=== PATIENT | female | born 1985 ===

== ENCOUNTER 2025-06-20 14:51 | Emergency (ER) | payer OTHER, SELFPAY ==
[2025-06-20 15:09] VITALS: BP 131/80
[2025-06-20 15:28] LABS: Hematocrit 38.0 % (37.0-47.0); Hemoglobin 12.7 g/dL (12.0-16.0); Mean Corp Hgb Conc. 33.4 g/dL (33.0-37.0); Mean Corpuscular Volume 86.4 fL (81.0-99.0); Nucleated Red Blood Cells % 0 %; Platelet Count 212 10^3/uL (130-400); Red Cell Dist. Width 13.4 % (11.5-14.5)
[2025-06-20 15:41] LABS: HCG, Serum Qualitative Screen Negative
[2025-06-20 15:48] LABS: ALT (SGPT) 25 U/L (0-35); AST (SGOT) 22 U/L (14-36); Albumin 4.2 g/dl (3.5-5.0); Alkaline Phosphatase 43 U/L (38-126); Blood Urea Nitrogen 19 mg/dl (7-17); Calcium 8.4 mg/dl (8.4-10.2); Carbon Dioxide 26 mmol/L (22-30); Chloride 108 mmol/L (98-107); Glucose 114 mg/dl (70-99); Potassium 4.5 mmol/L (3.5-5.1); Sodium 138 mmol/L (135-145); Total Protein 7.1 g/dl (6.3-8.2); eGFR > 60.00
[2025-06-20] MEDS: FAMVIR 500 MG PO (19:03)
--- NOTE | 2025-06-20 23:23 | ED.GENMED ---
History of Present Illness
General
Chief Complaint: Skin Problem
Source: patient
Exam Limitations: none
Time Seen by Provider: 06/20/25 18:10
Nursing documentation reviewed up to this point in time: agreed with
History of Present Illness
History of Present Illness:
Patient to ED wtih complaint of rash to left shoulder and ear. Currently taking antibiotcs for skin infection. She reports not improvement. Rash hurts and itches. No fever/chills. No other symptoms. Brought self to ED for eval.
Past History
Past History
ED Past Medical History: None
Review of Systems
Review of Systems
Allergies reviewed?: Yes
All Other Systems: ROS reviewed and negative except as documented in HPI and ROS
Constitutional: Reports no symptoms
EENT: Reports no symptoms
Respiratory: Reports no symptoms
Cardiac: Reports no symptoms
Musculoskeletal: Reports no symptoms
Skin: Reports other (vesicular rash to left outer ear, left shoulder)
Neurological: Reports no symptoms
Psychiatric: Reports no symptoms
Phy Exam
General Physical Exam
General Presentation: well appearing and no apparent distress
General age: appears stated age
General Skin: warm and dry
General Habitus: normal
General Mental: alert
ENT Exam
ENT Exam: EOMI, TM's normal, pharynx normal, neck supple and normocephalic
Skin Exam
Skin Exam: normal color, warm/dry and other (Grouped vesicular rash to left shoulder, left outer ear consistent with herpes zoster.)
Psychiatric Exam
Psychiatric Exam: normal mood/affect
Course
Orders/Labs/Results
Orders:
Orders
06/20/25 15:15
Test Result ONCE
06/20/25 15:18
CBC/With Diff [Complete Blood Count/With Diff] Urgent
Comprehensive Metabolic Panel Urgent
HCG, Serum Qualitative Screen Urgent
06/20/25 18:55
Famciclovir [Famvir] 500 mg PO NOW STA
Abnormal Lab Results
06/20/25
15:18
Abs Immat Gran (auto) 0.1 H 10^3/uL
(0-0.05)
Immature Gran % 0.6 H %
(0-0.5)
Chloride 108 H mmol/L
(98-107)
BUN 19 H mg/dl
(7-17)
Glucose 114 H mg/dl
(70-99)
06/20/25 15:18
06/20/25 15:18
Vital Signs
Initial and Last Documented VS:
Initial Vital Signs
Temp Pulse Resp BP Pulse Ox
98.9 F 90 16 131/80 98
06/20/25 15:09 06/20/25 15:09 06/20/25 15:06/20/25 15:09 06/20/25 15:09
Last Documented Vital Signs
Temp Pulse Resp BP Pulse Ox
98.9 F 90 16 131/80 98
06/20/25 15:09 06/20/25 15:09 06/20/25 15:09 06/20/25 15:09 06/20/25 23:23
*Pulse Oximetry
SaO2: 98
Oxygen Mode of Delivery: Room air
Patient hypoxic: no
*Critical Care Note
Total Time (30-74mins, 75-104mins- exclusive of procedures): Not Applicable
Update Note
Update Note:
Patient to ED for eval of grouped vesicular rash to left outer ear and shoulder. Herpes zoster. Placed on famvir 500mg tid x 7 days, first dose given in ED. Patient is discharged home and will follow up with PCP, given instructions on s/s to
return to ED and she is agreeable to plan.
ED Attending Note
-
Portions of this chart may have been created with voice recognition software.� Occasional wrong word or��sound alike� substitutions may have occurred due to the inherent limitations of voice recognition software.
Discharge Plan
Departure
Patient Disposition: Home (Routine Discharge)
Date of Disposition: 06/20/25
Time of Disposition: 18:24
Patient with high blood pressure during this ER visit?: No
Condition: Good
Covid-19: Not Applicable
Discharge Problem:
Shingles
Instructions: Shingles
Prescriptions:
New
famciclovir 500 mg tablet
500 mg PO Q8H 7 Days Qty: 21 0RF
Activity Restrictions/Additional Instructions:
Follow up with your family doctor.
Interventions
Interventions:
*Risk Screen - Suicide Last Done: 06/20/25 15:09
*Neglect/Abuse Screening Last Done: 06/20/25 15:09
*Nursing Disposition Last Done: 06/20/25 19:19
ED-Skin Assessment Last Done: 06/20/25 18:17
Discharge Date and Time
Discharge Date/Time: 06/20/25 19:21
Print Language: TONGAN
== END 2025-06-20 19:21 | disposition home or self-care (01) ==
LOC: EMR 14:51
PROVIDERS: Emergency Medicine; EMERGENCY PHYSICIAN Emergency Medicine; FAMILY PHYSICIAN Nurse Practitioner Family
DX: B02.9 Zoster without complications (principal)
CPT/HCPCS: 99283; 80053; 84703; 85025